=== PATIENT | male | born 1975 | race African-American/Black ===

== ENCOUNTER 2018-05-03 12:39 | Emergency (ER) | payer OTHER ==
[2018-05-03 12:47] VITALS: BP 140/74; PULSE 96; TEMP 98.7; BMI 23.1
[2018-05-03] MEDS ORDERED: KETOROLAC TROMETHAMINE 30 MG/1 ML VIAL IM ONE (12:54)
--- NOTE | 2018-05-03 12:54 | PDOC ---
History of Present Illness - General Chief Complaint: Pain, Acute Stated Complaint: PAIN DUE TO HERNIATED DISC Time Seen by Provider: 05/03/18 12:40 History Source: Patient Exam Limitations: No Limitations - History of Present Illness Initial Comments: 05/03/18 12:41 Mr Reyna presents to the ER again for a complaint of back pain. He was seen in the ER almost 3 weeks ago. Initially work up was negative, pt was diagnosed with epididimytis and started on abx for presumed epididimytis. The pt states the pain has worsened, such that now, he has pain with laying down, walking, sitting on the toilet, bending. Was seen in the ER several days ago, started on tramadol Pain has not improved at all No bowel or bladder incontinence No saddle anesthesia No numbness or weakness of the extremities No fevers or chills Pt has been unable to work due to pain He has followed up with his PMD and has an appointment with Ortho next week PMH: denies PSH: denies Meds: denies ALL: NKDA Social: denies IVDU, drugs, ROS: Constitutional - no reported Fever, Chills, HEENT: no reported vision changes, sore throat Respiratory: no reported cough, sob, hemoptysis Cardiac: no reported chest pain, palpitations, light headedness, leg swelling Abd/GI: no reported abd pain, nausea, vomiting, blood per rectum, melena, diarrhea : (+) right groin pain no reported dysuria, frequency, discharge Musculskelatal : (+) back pain skin - no reported bruising, erythema, rash neurological: no reported headache, numbness, focal weakness, tingling, ataxia, hematologic: no reported easy bruising, easy bleeding PE GENERAL: The patient is awake, alert, and fully oriented, Nontoxic - in no acute distress. HEAD: Normocephalic, atraumatic. EYES: extraocular movements intact, sclera anicteric, conjunctiva clear. ENT: Normal voice, Moist mucous membranes. NECK: Normal range of motion, supple LUNGS: Breath sounds equal, clear to auscultation bilaterally. No wheezes, no rhonchi, no rales. HEART: Regular rate and rhythm, normal S1 and S2 without murmur, rub or gallop. ABDOMEN: Soft, nontender, No guarding, no rebound. No CVA tenderness EXTREMITIES: Normal range of motion, no edema. pain reproduced with adduction of R thigh, +focal tenderness in the insertion point of adductor longus NEUROLOGICAL: No facial assymetry, Normal speech, antalgic gait, strength symmetric in lower extremities 5/5 all extremities Motor examination intact - crosses right leg over left, flexion at hip, extension at hip nml, flexion and extension at knee nml, flexion and extension at ankle nml Sensation in tact PSYCH: Normal mood, normal affect. SKIN: Warm, Dry, normal turgor, 05/03/18 14:14 05/03/18 16:49 05/03/18 16:51 Past History - Past Medical History Allergies/Adverse Reactions: Allergies Allergy/AdvReac Type Severity Reaction Status Date / Time No Known Allergies Allergy Verified 05/03/18 12:40 Home Medications: Ambulatory Orders Lidocaine 5% Patch [Lidoderm Patch -] 1 patch TP DAILY PRN #30 patch 05/03/18 Methocarbamol [Robaxin -] 500 mg PO TID PRN #30 tablet 05/03/18 Methylprednisolone [Medrol Dose Andreas] 4 mg PO ASDIR #21 tablet 05/03/18 Oxycodone HCl/Acetaminophen [Percocet 5-325 mg Tablet] 1 tab PO Q6H PRN #16 tablet MDD 4 05/03/18 COPD: No - Suicide/Smoking/Psychosocial Hx Smoking History: Current every day smoker Number of Cigarettes Smoked Daily: 10 'Breaking Loose' booklet given: 04/24/18 Hx Alcohol Use: No Drug/Substance Use Hx: No Substance Use Type: None Medical Decision Making - Medical Decision Making 05/03/18 12:59 Sciatica Pain poorly controlled No neurologic disability or weakness Will discharge to home on additional medications Pt has ortho follow up Clinical Impression: Sciatica, initial presentation *DC/Admit/Observation/Transfer Diagnosis at time of Disposition: Sciatica Qualifiers: Laterality: right Qualified Code(s): M54.31 - Sciatica, right side - Discharge Dispostion Disposition: HOME Condition at time of disposition: Stable Decision to Admit order: No - Prescriptions Prescriptions: Lidocaine 5% Patch [Lidoderm Patch -] 1 patch TP DAILY PRN #30 patch PRN Reason: Pain Methocarbamol [Robaxin -] 500 mg PO TID PRN #30 tablet PRN Reason: Lower Back Pain Methylprednisolone [Medrol Dose Andreas] 4 mg PO ASDIR #21 tablet Oxycodone HCl/Acetaminophen [Percocet 5-325 mg Tablet] 1 tab PO Q6H PRN #16 tablet MDD 4 PRN Reason: Pain - Referrals - Patient Instructions Printed Discharge Instructions: Sciatica (Alternative Therapy), DI for Sciatica , DI for Back Pain With Sciatica, Smoking Cessation - Post Discharge Activity Forms/Work/School Notes: Back to Work
== END 2018-05-03 13:14 | disposition home or self-care (01) ==
LOC: FER 12:39
PROC: 3E0233Z Introduction of Anti-inflammatory into Muscle, Percutaneous Approach (ICD-10-PCS; principal; 2018-05-03)
DX: M54.31 Sciatica, right side (principal); F17.210 Nicotine dependence, cigarettes, uncomplicated
CPT/HCPCS: 99281-25

== ENCOUNTER 2018-08-07 08:15 | Day surgery (SDC) | payer OTHER ==
[2018-08-01 12:27] VITALS: BMI 22.4
[~2018-08-07 08:15] MED LIST: oxyCODONE HCL 10 MG SUSTAINED ACTING TABLET PO ONE
[2018-08-07] MEDS ORDERED: oxyCODONE HCL 5 MG TABLET PO PRN (08:37)
[2018-08-07] MEDS ORDERED: ONDANSETRON 4 MG/2 ML VIAL IVPUSH PRN (08:37)
[2018-08-07] MEDS ORDERED: LACTATED RINGERS SOLUTION 1,000 ML IV SCH (08:45)
[2018-08-07] MEDS ORDERED: oxyCODONE HCL 10 MG SUSTAINED ACTING TABLET ONE (08:45)
[2018-08-07] MEDS ORDERED: DEXAMETHASONE SOD PHOSPHATE/PF 10 MG/ML SDV ONE (10:49)
[2018-08-07] MEDS ORDERED: BUPIVACAINE HCL/PF (5 MG/ML) 30 ML VIAL IJ ONE (10:50)
[2018-08-07] MEDS ORDERED: MIDAZOLAM HCL 2 MG/2 ML SINGLE DOSE VIAL ONE ×2 (10:50→12:08)
--- NOTE | 2018-08-07 11:11 | HP ---
History & Physical Update - History History: No Change - Physical Physical: No Change - Assessment Assessment: No Change - Plan Plan: No Change (Full H&P in chart)
[2018-08-07] MEDS ORDERED: DEXAMETHASONE SOD PHOSPHATE 4 MG/1 ML VIAL ONE (11:21)
[2018-08-07] MEDS ORDERED: ceFAZolin SODIUM 1 GM VIAL ONE (11:21)
[2018-08-07] MEDS ORDERED: SODIUM CHLORIDE 0.9% P/F 10 ML VIAL IJ ONE (11:21)
[2018-08-07] MEDS ORDERED: ONDANSETRON 4 MG/2 ML VIAL ONE (11:21)
[2018-08-07] MEDS ORDERED: LIDOCAINE 1%/EPI 1:100000 (20 ML MULTI DOSE VIAL) ONE (11:33)
[2018-08-07] MEDS ORDERED: methylPREDNISolone ACET (DEPO) 40 MG/1 ML VIAL ONE (11:33)
[2018-08-07] MEDS ORDERED: THROMBIN (BOVINE) 5,000 UNIT VIAL TP ONE ×2 (11:33→12:21)
[2018-08-07] MEDS ORDERED: LIDOCAINE 1%/EPI 1:100000 (50 ML MULTI DOSE VIAL) INF ONE (12:18)
[2018-08-07] MEDS ORDERED: GELATIN SPONGE,ABSORBABLE 1 GM PACKET TP ONE ×2 (12:22→12:52)
[2018-08-07] MEDS ORDERED: methylPREDNISolone ACET (DEPO) 40 MG/1 ML VIAL IM ONE ×2 (12:30→13:03)
[2018-08-07] MEDS ORDERED: GUM MASTIC/STORAX/MSAL/ALCOHOL 1 DRP DROPSBTL MC ONE (13:08)
--- NOTE | 2018-08-07 13:39 | OP ---
Operative Note - Note: Operative Date: 08/07/18 Pre-Operative Diagnosis: spinal stenosis, herniated disc Operation: laminetomy of L4-L5, microdiscectomy Surgeon: Wilson Mclaughlin Key Account Representative: Miguelina Finnegan Anesthesiologist/SUPPLY CHAIN SPECIALIST: Rafael Corcoran Anesthesia: Spinal Specimens Removed: disc L4-L5 Estimated Blood Loss (mls): 20 Fluid Volume Replaced (mls): 1,000 Operative Report Dictated: Yes
--- NOTE | 2018-08-07 13:40 | SURG ---
Surgery Sheet Pile Hammer Operator Note Sheet Pile Hammer Operator: Miguelina Finnegan PA-C Date of Service: 08/07/18 Diagnosis: lumbar stenosis, herniated disc L4-L5 Procedure: laminecotmy of L4-L5 with microdiscectomy I was present for the entirety of the operative procedure. For further detail, please refer to operative report. Visit type - Case Type Case Type: Scheduled - Emergency Emergency Visit: No - New patient This patient is new to me today: Yes Date on this admission: 08/07/18
[2018-08-07] MEDS ORDERED: oxyCODONE HCL 5 MG TABLET ONE ×2 (14:32→15:58)
[2018-08-07 17:56] VITALS: BP 116/67; PULSE 76; TEMP 98.4
--- NOTE | 2018-08-07 23:15 | OP ---
DATE OF OPERATION: 08/07/2018 PREOPERATIVE DIAGNOSIS: Spinal stenosis L4-5. POSTOPERATIVE DIAGNOSIS: Spinal stenosis L4-5. PROCEDURE PERFORMED: Laminectomy L4-5. SURGEON: Wilson Mclaughlin M.D. FORK TRUCK OPERATOR: Juana Patel ESTIMATED BLOOD LOSS: 250 mL INTRAVENOUS FLUIDS: Per anesthesia. ANESTHESIA: Spinal/TLIP. COMPLICATIONS: There were none. DISPOSITION: Patient brought to the PACU in stable condition. 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 X-rays and MRI were completed, which noted he has spinal stenosis at L4-5. He had gone through an exhaustive course of treatment for this which included medications, physical therapy, as well as injections. Unfortunately, the pain continued to persist in spite of all this. At this point, risks, benefits, and alternatives were discussed and the patient consented to surgery. OPERATIVE NOTE: Patient is brought to the operating room by the anesthesia staff. After appropriate patient identification is performed, spinal anesthesia was given. A TLIP block was also given. The patient was able to position himself prone onto the OR table with all areas of bony prominences well padded at this time. Two needles were placed into his back to yazan off the L4-5 segment, and x-ray is taken to confirm this is correct. Christiana were removed, and 10 mL of lidocaine with epinephrine was injected into his back at this time. His back was prepped and draped in a sterile manner. At this point timeout was completed. An incision was made from the top of L4 down to the bottom of L5. Dissection was carried down to the fascia. Fascia was then split open at this time, and appropriate retractors were then placed in. Then a spinal needle was placed onto the L4 lamina. An x-ray was taken to confirm this was correct. The needle was removed. The interspinous ligament at L4-5 was removed. A portion of the L4-5 spinous process was removed. The nerve root was mobilized medially. A portion of the inferior-superior facets were removed to complete a decompression, the L5 nerve roots appear to be well decompressed. All bleeding was well controlled at this time. Steroids were placed over the nerve root, Floseal was placed over that. The fascia was closed using a number 1 Vicryl suture. The subcutaneous tissue was closed with 2-0 Vicryl suture. Skin was closed with 3-0 Monocryl suture. Dermabond was applied. Steri-Strips were applied. Sterile dressing was applied. Patient was placed supine on OR bed, and brought to the PACU in stable condition. Tam DIXON/[id number] MTDD
== END 2018-08-07 17:56 | disposition home or self-care (01) ==
LOC: FASU 08:15
PROVIDERS: ATTEND Orthopaedic Surgery Orthopaedic Surgery of the Spine
PROC: 01NB0ZZ Release Lumbar Nerve, Open Approach (ICD-10-PCS; principal; 2018-08-07 12:16)
DX: M48.061 Spinal stenosis, lumbar region without neurogenic claudication (principal)
CPT/HCPCS: 72100-TC-FY; 88304-TC; 94760

== ENCOUNTER 2018-08-30 17:59 | Emergency (ER) | payer OTHER ==
[2018-08-30 18:14] VITALS: BP 118/68; PULSE 67; TEMP 98.3; BMI 23.1
--- NOTE | 2018-08-30 18:22 | PDOC ---
History of Present Illness - General History Source: Patient Exam Limitations: No Limitations - History of Present Illness Initial Comments: 08/30/18 18:31 The patient is a 42 year old male, with no significant PMH, who presents to the emergency department with neck and head pain that began 5 days ago. The patient states he cracked his neck 5 days ago when symptoms began and has progressively worsened today. The patient endorses associated symptoms of nausea , vomiting and headache with a severity of 15/10. The patient states neck pain is exacerbated with movement. The patient also mentions he had a laminectomy done 08/07/2018 to the lower back secondary to work injury and notes some swelling to the surgical site.The patient denies lifting anything heavy after surgery. Denies chest pain, shortness of breath and dizziness.Denies fever, chills, diarrhea and constipation. Allergies: NKDA Past surgical history: Laminectomy Lower back Social history: Smokes Marijuana PCP: None reported <Gildardo Aguirre - Last Filed: 08/30/18 18:25> - General History Source: Patient <Celeste Stoddard - Last Filed: 08/30/18 18:53> - General Chief Complaint: Pain Stated Complaint: HEAD AND NECK PAIN FOR 5 DAYS Time Seen by Provider: 08/30/18 18:07 Past History <Gildardo Aguirre - Last Filed: 08/30/18 18:25> - Past Medical History Anemia: No Asthma: No Cancer: No Cardiac Disorders: No CVA: No COPD: No CHF: No Dementia: No Diabetes: No GI Disorders: No Disorders: No HTN: No Hypercholesterolemia: No Liver Disease: No Seizures: No Thyroid Disease: No - Suicide/Smoking/Psychosocial Hx Smoking History: Current every day smoker Have you smoked in the past 12 months: Yes Number of Cigarettes Smoked Daily: 10 'Breaking Loose' booklet given: 04/24/18 Hx Alcohol Use: No Drug/Substance Use Hx: Yes (2x/week) Substance Use Type: Marijuana Hx Substance Use Treatment: No <Celeste Stoddard - Last Filed: 08/30/18 18:53> - Past Medical History Allergies/Adverse Reactions: Allergies Allergy/AdvReac Type Severity Reaction Status Date / Time No Known Allergies Allergy Verified 08/30/18 18:01 Home Medications: Ambulatory Orders NK [No Known Home Medication] 08/30/18 Review of Systems - Review of Systems Able to Perform ROS?: Yes Constitutional: No: Symptoms Reported, See HPI, Chills, Diaphoresis, Fever, Loss of Appetite, Malaise, Night Sweats, Weakness, Weight Stable, Unintentional Wgt. Loss, Unexplained wgt Loss, Other HEENTM: No: Symptoms Reported, See HPI, Eye Pain, Blurred Vision, Tearing, Recent change in vision, Double Vision, Cataracts, Ear Pain, Ocular Prothesis, Ear Discharge, Nose Pain, Nose Congestion, Tinnitus, Nose Bleeding, Hearing Loss , Throat Pain, Throat Swelling, Mouth Pain, Dental Problems, Difficulty Swallowing, Mouth Swelling, Other Respiratory: No: Symptoms reported, See HPI, Cough, Orthopnea, Shortness of Breath, SOB with Exertion, SOB at Rest, Stridor, Wheezing, Productive cough, Hemoptysis, Other Cardiac (ROS): No: Symptoms Reported, See HPI, Chest Pain, Edema, Irregular Heart Rate, Lightheadedness, Palpitations, Syncope, Chest Tightness, Other Musculoskeletal: Yes: Muscle Pain, Neck Pain Neurological: Yes: Headache <Gildardo Aguirre - Last Filed: 08/30/18 18:25> *Physical Exam - Vital Signs Last Vital Signs Temp Pulse Resp BP Pulse Ox 98.3 F 67 16 118/68 100 08/30/18 18:00 08/30/18 18:00 08/30/18 18:00 08/30/18 18:00 08/30/18 18:00 - Physical Exam HEENT: positive: Other (Mild tenderness of the frontal head ) Neck: positive: Tender ( Moderate tenderness mid cervical spine bilateral posterior neck muscle ) <Gildardo Aguirre - Last Filed: 08/30/18 18:25> Medical Decision Making - Medical Decision Making Patient endorsd to Dr Norwood at shift change CT and X ray still pending 08/30/18 18:51 <Celeste Stoddard - Last Filed: 08/30/18 18:53> *DC/Admit/Observation/Transfer - Attestations Scribe Attestion: 08/30/18 18:45 Documentation prepared by Gildardo Aguirre, acting as medical claims analyst for Celeste Stoddard MD. <Gildardo Aguirre - Last Filed: 08/30/18 18:25> <Celeste Stoddard - Last Filed: 08/30/18 18:53> Diagnosis at time of Disposition: Neck muscle strain Qualifiers: Encounter type: initial encounter Qualified Code(s): S16.1XXA - Strain of muscle, fascia and tendon at neck level, initial encounter - Discharge Dispostion Condition at time of disposition: Stable
[2018-08-30] MEDS ORDERED: KETOROLAC TROMETHAMINE 60 MG/2 ML VIAL IM ONE (19:25)
[2018-08-30] MEDS ORDERED: SODIUM CHLORIDE 1,000 ML IV ONE (19:26)
[2018-08-30] MEDS ORDERED: KETOROLAC TROMETHAMINE 30 MG/1 ML VIAL IVPUSH ONE (19:26)
[2018-08-30] MEDS ORDERED: METOCLOPRAMIDE HCL INJECTION 10 MG/2 ML VIAL IVPUSH ONE (19:26)
[2018-08-30] MEDS ORDERED: KETOROLAC TROMETHAMINE 30 MG/1 ML VIAL ONE (19:33)
[2018-08-30 20:04] LABS: HEMATOCRIT 44.6 % (35.4-49); MCH 31.7 pg (25.7-33.7); MCHC 33.6 g/dl (32.0-35.9); MEAN CELL VOLUME 94.2 fl (80-96); PLATELET COUNT 269 K/MM3 (134-434); RBC 4.73 M/mm3 (4.00-5.60); RDW 12.2 % (11.9-15.9); WHITE BLOOD COUNT 7.5 K/mm3 (4.0-10.8)
[2018-08-30 20:11] LABS: ALBUMIN 4.5 g/dl (3.5-5.0); ALK PHOS 56 U/L (32-92); ANION GAP 8 MMOL/L (8-16); BILIRUBIN,TOTAL 0.8 mg/dl (0.2-1.0); BLOOD UREA NITROGEN 11 mg/dl (7-18); CALCIUM 9.2 mg/dl (8.4-10.2); CHLORIDE 107 mmol/L (98-107); CO2 26 mmol/L (22-28); CREATININE 0.9 mg/dl (0.6-1.3); GLUCOSE,RANDOM 110 mg/dl (74-106); POTASSIUM 3.5 mmol/L (3.5-5.1); SGOT/AST 16 U/L (10-42); SGPT/ALT 12 U/L (10-40); SODIUM 141 mmol/L (136-145); TOT PROT 7.1 g/dl (6.4-8.3)
--- NOTE | 2018-08-30 20:14 | PDOC ---
*Physical Exam - Vital Signs Last Vital Signs Temp Pulse Resp BP Pulse Ox 98.3 F 67 16 118/68 100 08/30/18 18:00 08/30/18 18:00 08/30/18 18:00 08/30/18 18:00 08/30/18 18:00 ED Treatment Course - LABORATORY CBC & Chemistry Diagram: 08/30/18 19:28 08/30/18 19:28 - ADDITIONAL ORDERS Additional order review: Laboratory Results 08/30/18 19:28 Sodium 141 Potassium 3.5 Chloride 107 Carbon Dioxide 26 Anion Gap 8 BUN 11 Creatinine 0.9 Creat Clearance w eGFR > 60 Random Glucose 110 H Calcium 9.2 Total Bilirubin 0.8 AST 16 ALT 12 Alkaline Phosphatase 56 Total Protein 7.1 Albumin 4.5 08/30/18 19:28 RBC 4.73 MCV 94.2 MCHC 33.6 RDW 12.2 MPV 9.0 Neutrophils % No Result Required. Lymphocytes % No Result Required. - Medications Given in the ED: ED Medications Discontinued Medications Generic Name Dose Route Start Last Admin Trade Name Shanice PRN Reason Stop Dose Admin Ketorolac Tromethamine 60 mg 08/30/18 19:25 08/30/18 19:47 Toradol Injection - IM 08/30/18 19:26 Not Given ONCE ONE Ketorolac Tromethamine 30 mg 08/30/18 19:26 08/30/18 19:30 Toradol Injection - IVPUSH 08/30/18 19:27 30 mg ONCE ONE Administration Metoclopramide HCl 10 mg 08/30/18 19:26 08/30/18 19:30 Reglan Injection - IVPUSH 08/30/18 19:27 10 mg ONCE ONE Administration Progress Note - Progress Note Progress Note: This is a 42-year-old male whose care was transferred to me from Dr. Stoddard at 7 PM. Patient said that he "cracked his neck approximately 2 weeks ago and has had progressive pain in his head and neck since. In addition to that patient said he has had some nausea vomiting secondary to the headache. Patient was given Toradol and Reglan here in the emergency room with marked improvement in his symptoms but not complete resolution. She had a head CT that was negative for any acute pathology Patient had a cervical spine x-ray that was negative for any acute pathology cervical spine x-ray was reviewed and interpreted by me. Patient discharged home will follow-up with his primary care doctor. *DC/Admit/Observation/Transfer Diagnosis at time of Disposition: Neck muscle strain Qualifiers: Encounter type: initial encounter Qualified Code(s): S16.1XXA - Strain of muscle, fascia and tendon at neck level, initial encounter - Discharge Dispostion Disposition: HOME Condition at time of disposition: Stable - Referrals - Patient Instructions Additional Instructions: For the pain you can take ibuprofen, Aleve or Tylenol. Return to the emergency department immediately with ANY new, persistent or worsening symptoms. Continue any medications as previously prescribed by your physician. You should follow up with your primary doctor as soon as possible regarding today's emergency department visit. . Please make sure your doctor reviews the results of your emergency evaluation. Thank you for coming to the Emergency Department today for your care. It was a pleasure to see you today. Please note that your evaluation is INCOMPLETE until you follow-up with your doctor. - Post Discharge Activity
[2018-08-30] MEDS ORDERED: MECLIZINE HCL 25 MG TABLET (FP) PO ONE (20:46)
[2018-08-30] MEDS ORDERED: ONDANSETRON *ODT* 4 MG TABLET SL ONE (20:46)
--- NOTE | 2018-08-30 20:47 | PDOC ---
*Physical Exam - Vital Signs Last Vital Signs Temp Pulse Resp BP Pulse Ox 98.3 F 67 16 118/68 100 08/30/18 18:00 08/30/18 18:00 08/30/18 18:00 08/30/18 18:00 08/30/18 18:00 ED Treatment Course - LABORATORY CBC & Chemistry Diagram: 08/30/18 19:28 08/30/18 19:28 - ADDITIONAL ORDERS Additional order review: Laboratory Results 08/30/18 19:28 Sodium 141 Potassium 3.5 Chloride 107 Carbon Dioxide 26 Anion Gap 8 BUN 11 Creatinine 0.9 Creat Clearance w eGFR > 60 Random Glucose 110 H Calcium 9.2 Total Bilirubin 0.8 AST 16 ALT 12 Alkaline Phosphatase 56 Total Protein 7.1 Albumin 4.5 08/30/18 19:28 RBC 4.73 MCV 94.2 MCHC 33.6 RDW 12.2 MPV 9.0 Neutrophils % No Result Required. Lymphocytes % No Result Required. - Medications Given in the ED: ED Medications Discontinued Medications Generic Name Dose Route Start Last Admin Trade Name Freq PRN Reason Stop Dose Admin Sodium Chloride 1,000 mls @ 1,000 mls/hr 08/30/18 19:26 08/30/18 19:43 Normal Saline - IV 08/30/18 20:25 1,000 mls/hr .Q1H ONE Administration Ketorolac Tromethamine 60 mg 08/30/18 19:25 08/30/18 19:47 Toradol Injection - IM 08/30/18 19:26 Not Given ONCE ONE Ketorolac Tromethamine 30 mg 08/30/18 19:26 08/30/18 19:30 Toradol Injection - IVPUSH 08/30/18 19:27 30 mg ONCE ONE Administration Metoclopramide HCl 10 mg 08/30/18 19:26 08/30/18 19:30 Reglan Injection - IVPUSH 08/30/18 19:27 10 mg ONCE ONE Administration Progress Note - Progress Note Progress Note: Postdischarge patient began to feel poorly and became nauseous prior to leaving the premises. So patient came back in for reevaluation. Patient was given some ODT Zofran and Antivert. After the Zofran and Antivert patient got up and walked out of the ED again. *DC/Admit/Observation/Transfer Diagnosis at time of Disposition: Neck muscle strain Qualifiers: Encounter type: initial encounter Qualified Code(s): S16.1XXA - Strain of muscle, fascia and tendon at neck level, initial encounter - Discharge Dispostion Disposition: HOME Condition at time of disposition: Stable - Referrals - Patient Instructions Additional Instructions: For the pain you can take ibuprofen, Aleve or Tylenol. Return to the emergency department immediately with ANY new, persistent or worsening symptoms. Continue any medications as previously prescribed by your physician. You should follow up with your primary doctor as soon as possible regarding today's emergency department visit. . Please make sure your doctor reviews the results of your emergency evaluation. Thank you for coming to the Emergency Department today for your care. It was a pleasure to see you today. Please note that your evaluation is INCOMPLETE until you follow-up with your doctor. - Post Discharge Activity
[2018-08-30] MEDS ORDERED: MECLIZINE HCL 25 MG TABLET (FP) ONE (20:49)
[2018-08-30] MEDS ORDERED: ONDANSETRON *ODT* 4 MG TABLET ONE (20:50)
[2018-08-30 20:52] LABS: PLATELET ESTIMATE ADEQUATE
== END 2018-08-30 21:11 | disposition home or self-care (01) ==
LOC: FER 17:59
PROC: 3E0333Z Introduction of Anti-inflammatory into Peripheral Vein, Percutaneous Approach (ICD-10-PCS; principal; 2018-08-30)
PROC: 3E033GC Introduction of Other Therapeutic Substance into Peripheral Vein, Percutaneous Approach (ICD-10-PCS; 2018-08-30)
PROC: 3E0337Z Introduction of Electrolytic and Water Balance Substance into Peripheral Vein, Percutaneous Approach (ICD-10-PCS; 2018-08-30)
DX: S16.1XXA Strain of muscle, fascia and tendon at neck level, initial encounter (principal); X58.XXXA Exposure to other specified factors, initial encounter; Y93.89 Activity, other specified; Y92.9 Unspecified place or not applicable; F17.210 Nicotine dependence, cigarettes, uncomplicated
CPT/HCPCS: 36415; 70450-TC; 72050-TC-FY; 80053; 85025; 99283-25; J7030; Q0162

== ENCOUNTER 2019-01-31 15:58 | Emergency (ER) | payer OTHER ==
[2019-01-31 16:49] VITALS: BP 119/74; PULSE 97; TEMP 99; BMI 24.4
[2019-01-31] MEDS ORDERED: DEXAMETHASONE LIQUID 0.5 MG/5 ML 240 ML BULK BOTTLE PO ONE (17:27)
--- NOTE | 2019-01-31 17:31 | PDOC ---
History of Present Illness - General Chief Complaint: Cold Symptoms Stated Complaint: COUGHING/CONJESTED Time Seen by Provider: 01/31/19 16:58 - History of Present Illness Initial Comments: 01/31/19 17:30 43-year-old male without comorbidities presents for evaluation of fever chills night sweats and cough times one day. Past History - Past Medical History Allergies/Adverse Reactions: Allergies Allergy/AdvReac Type Severity Reaction Status Date / Time No Known Allergies Allergy Verified 01/31/19 16:49 Home Medications: Ambulatory Orders Albuterol Sulfate Inhaler - [Ventolin HFA Inhaler -] 1 - 2 inh PO Q4H #1 inhaler 01/31/19 Azithromycin Ivpb [Zithromax 500Mg Ivpb (Pre-Docked)] 250 mg IVPB DAILY #6 vial 01/31/19 Guaifenesin Dm [Mucinex Dm -] 1 tab PO BID #60 tab.er.12h 01/31/19 Anemia: No Asthma: No Cancer: No Cardiac Disorders: No CVA: No COPD: No CHF: No Dementia: No Diabetes: No GI Disorders: No Disorders: No HTN: No Hypercholesterolemia: No Liver Disease: No Seizures: No Thyroid Disease: No - Suicide/Smoking/Psychosocial Hx Smoking History: Never smoked Have you smoked in the past 12 months: Yes Number of Cigarettes Smoked Daily: 10 Information on smoking cessation initiated: No 'Breaking Loose' booklet given: 04/24/18 Hx Alcohol Use: No Drug/Substance Use Hx: No Substance Use Type: Marijuana Hx Substance Use Treatment: No Review of Systems - Review of Systems Constitutional: Yes: See HPI, Chills, Fever, Malaise, Night Sweats Respiratory: Yes: Cough *Physical Exam - Vital Signs Last Vital Signs Temp Pulse Resp BP Pulse Ox 99 F 97 H 18 119/74 95 01/31/19 16:46 01/31/19 16:46 01/31/19 16:46 01/31/19 16:46 01/31/19 16:46 - Physical Exam Comments: 01/31/19 17:30 HEAD: NC/AT EYES: Conjuntiva clear Ears: Canals and TM's normal NOSE: No d/c THROAT: Moist mucous membrances, oral pharanx clear, uvula midline NECK: Supple without adenopathy CARDIAC: S1 S2 LUNGS: Mild diffuse wheezing mild rhonchi bilateral bases ABDOMEN: Soft NT ND MS: Full ROM in all joints without edema NEUROLOGIC: No gross sensory or motor deficits, NVID SKIN: Normal color and temperature no lesions or rashes Moderate Sedation - Procedure Monitoring Vital Signs: Procedure Monitoring Vital Signs Temperature 99 F 01/31/19 16:46 Pulse Rate 97 H 01/31/19 16:46 Respiratory Rate 18 01/31/19 16:46 Blood Pressure 119/74 01/31/19 16:46 O2 Sat by Pulse Oximetry (%) 95 01/31/19 16:46 ED Treatment Course - RADIOLOGY Radiology Studies Ordered: Category Date Time Status CHEST PA & LAT [RAD] Stat Radiology 01/31/19 17:27 Ordered Medical Decision Making - Medical Decision Making 01/31/19 17:55 CXR clear 01/31/19 18:37 Patient wheezing resolved after Decadron and DuoNeb's. Rhonchi has greatly decreased. There is faint rhonchi at the right base on reexamination. I will treat him for asthmatic bronchitis and have him follow-up with pulmonology. Discussed cessation of smoking *DC/Admit/Observation/Transfer Diagnosis at time of Disposition: Asthmatic bronchitis - Discharge Dispostion Disposition: HOME Condition at time of disposition: Improved Decision to Admit order: No - Referrals Referrals: Dieudonne Starr MD, MD [Staff Physician] - - Patient Instructions Printed Discharge Instructions: Acute Bronchitis, DI for Acute Bronchitis, Asthma -- Adult, Assess Your Smoking Habit, Nicotine Addiction, How to Quit Smoking, Reasons to Quit Smoking Additional Instructions: Return to the emergency room for worsening symptoms. Please follow-up with pulmonology in one to 2 days for further evaluation and treatment options. Take the antibiotics as directed and use the inhaler as directed. He will given a dose of a long-acting steroid in the emergency room which will help her breathing. Again return to the emergency room for worsening symptoms and follow- up with pulmonology in the next 1-2 days for further evaluation and treatment options as well as her primary care physician in the same timeframe. - Post Discharge Activity
[2019-01-31] MEDS ORDERED: ACETAMINOPHEN 500 MG TABLET (FP) PO ONE (17:33)
[2019-01-31] MEDS ORDERED: DEXAMETHASONE SOD PHOSPHATE 10 MG/1 ML VIAL ONE (17:37)
[2019-01-31] MEDS ORDERED: ACETAMINOPHEN 500 MG TABLET (FP) ONE (17:38)
[2019-01-31] MEDS ORDERED: ALBUTEROL SO4 2.5/IPRATROPIUM 0.5 INH SOL 3 ML VIAL.NEB. NEB ONE (17:38)
[2019-01-31] MEDS: ALBUTEROL SO4 2.5/IPRATROPIUM 0.5 INH SOL 3 ML VIAL.NEB. NEB SCH ×4 (17:40→18:19)
== END 2019-01-31 18:44 | disposition home or self-care (01) ==
LOC: JERFT 15:58
PROC: 3E0F7GC Introduction of Other Therapeutic Substance into Respiratory Tract, Via Natural or Artificial Opening (ICD-10-PCS; principal; 2019-01-31)
DX: J45.909 Unspecified asthma, uncomplicated (principal); Z87.891 Personal history of nicotine dependence
CPT/HCPCS: 71046-TC-FY; 87804; 99281-25

== ENCOUNTER 2020-01-16 11:21 | Emergency (ER) | payer SELFPAY ==
[2020-01-16 11:42] VITALS: BP 110/73; PULSE 73; TEMP 98; BMI 23.1
--- NOTE | 2020-01-16 11:51 | PDOC ---
History of Present Illness - General Chief Complaint: Urinary Problem Stated Complaint: URINARY HESITANCY Time Seen by Provider: 01/16/20 11:45 - History of Present Illness Initial Comments: 01/16/20 15:32 Chief complaint: Urinary hesitancy HPI: For about 2 weeks, the patient has had difficulty initiating urination, taking approximately 30 to 45 seconds before he can start. He also states that the urine "sprays" on both sides, there not being a usual narrow stream. There is no abdominal pain, dysuria, urgency, frequency, or hematuria. There is no fever/chills or back pain. Patient has had unprotected intercourse and is concerned about STDs Review of systems: As above. Otherwise negative Past medical history: Childhood asthma, which seems to have resolved. Otherwise healthy. Social/family history reviewed and noncontributory Physical exam: Alert and oriented well-developed well-nourished no acute distress cheerful and cooperative Afebrile, vital signs normal HEENT normal Neck supple without bruit mass or nodes Chest clear CV regular without murmur rub or gallop Abdomen soft nontender without mass organomegaly. No CVAT : No urethral lesions or discharge. No testicular masses or tenderness. No inguinal adenopathy. Impression: Rule out UTI, rule out STD Plan: Urinalysis is clear. HIV, chlamydia, and GC pending. Patient advised he will be called if there are any positive results. Otherwise he is referred to urologist for follow-up if symptoms persist. Fully ambulatory in no distress at discharge Past History - Past Medical History Allergies/Adverse Reactions: Allergies Allergy/AdvReac Type Severity Reaction Status Date / Time No Known Allergies Allergy Verified 01/31/19 16:49 Home Medications: Ambulatory Orders Albuterol Sulfate Inhaler - [Ventolin HFA Inhaler -] 1 - 2 inh PO Q4H #1 inhaler 01/31/19 Azithromycin Ivpb [Zithromax 500Mg Ivpb (Pre-Docked)] 250 mg IVPB DAILY #6 vial 01/31/19 Guaifenesin Dm [Mucinex Dm -] 1 tab PO BID #60 tab.er.12h 01/31/19 Anemia: No Asthma: No Cancer: No Cardiac Disorders: No CVA: No COPD: No CHF: No Dementia: No Diabetes: No GI Disorders: No Disorders: No HTN: No Hypercholesterolemia: No Liver Disease: No Seizures: No Thyroid Disease: No - Psycho Social/Smoking Cessation Hx Smoking History: Current every day smoker Have you smoked in the past 12 months: Yes Number of Cigarettes Smoked Daily: 10 Information on smoking cessation initiated: Yes 'Breaking Loose' booklet given: 04/24/18 Hx Alcohol Use: Yes Drug/Substance Use Hx: Yes (MARIJUANA) Substance Use Type: Marijuana Hx Substance Use Treatment: No *Physical Exam - Vital Signs Last Vital Signs Temp Pulse Resp BP Pulse Ox 98.0 F 73 15 110/73 100 01/16/20 11:28 01/16/20 11:28 01/16/20 11:28 01/16/20 11:28 01/16/20 11:28 Discharge - Discharge Information Problems reviewed: Yes Clinical Impression/Diagnosis: Urethritis Condition: Stable Disposition: HOME - Admission No - Follow up/Referral Referrals: Segundo Murray MD [Staff Physician] - 1 week - Patient Discharge Instructions Patient Printed Discharge Instructions: DI for Urethritis Additional Instructions: Urinalysis shows no sign of urinary tract infection Results of STD screening are pending. Call for results this evening or tomorrow. - Post Discharge Activity Work/Back to School Note: Back to Work
== END 2020-01-16 14:38 | disposition home or self-care (01) ==
LOC: FER 11:21
DX: N34.2 Other urethritis (principal); F17.210 Nicotine dependence, cigarettes, uncomplicated
CPT/HCPCS: 36415; 81003; 87389; 87491; 87591; 99283-25

== ENCOUNTER 2020-07-24 16:16 | Emergency (ER) | payer OTHER ==
[2020-07-24] MEDS ORDERED: IBUPROFEN 600 MG TABLET (FP) PO ONE ×2 (16:57→17:03)
--- NOTE | 2020-07-24 17:14 | PDOC ---
History of Present Illness - General Chief Complaint: Pain Stated Complaint: RT RIB PAIN WITH MOVT Time Seen by Provider: 07/24/20 16:57 History Source: Patient Exam Limitations: No Limitations - History of Present Illness Initial Comments: 07/24/20 17:08 44-year-old male no past medical history here today complaining of right rib pain. Patient states he was smoking weed recently does smoke often was eating and went to bed suddenly notes he had right-sided chest pain is worse with certain movements and reaching as well as palpation denies any fevers or chills no trauma no cough no history of blood clots it is worse when he takes a deep breath no leg swelling or recent travel no history of COVID infection or cold exposures patient is also incidentally complaining of a cyst that he feels on his left fourth finger which she has had for a very long time denies any pain no trauma does not limit his motion additionally today he was complaining of a bloody stool had blood-streaked stool in the toilet bowl states that he has has near intermittent constipation and loose stool does have a history of hemorrhoids also. Has not seen a GI denies any other abdominal pain not feeling lightheaded no family history of colon cancer Past History - Medical History Allergies/Adverse Reactions: Allergies Allergy/AdvReac Type Severity Reaction Status Date / Time No Known Allergies Allergy Verified 07/24/20 16:21 Home Medications: Ambulatory Orders NK [No Known Home Medication] 07/24/20 Anemia: No Asthma: No Cancer: No Cardiac Disorders: No CVA: No COPD: No CHF: No Dementia: No Diabetes: No GI Disorders: No Disorders: No HTN: No Hypercholesterolemia: No Liver Disease: No Seizures: No Thyroid Disease: No - Psycho-Social/Smoking History Smoking History: Current every day smoker Have you smoked in the past 12 months: Yes Number of Cigarettes Smoked Daily: 5 Information on smoking cessation initiated: Yes 'Breaking Loose' booklet given: 04/24/18 - Substance Abuse Hx (Audit-C & DAST Scrn) How often the patient has a drink containing alcohol: Never Score: In Men: 4 or > Positive; In Women: 3 or > Positive: 0 Screen Result (Pos requires Nsg. Audit-10AR): Negative In the last yr the pt used illegal drug/Rx for NonMed reason: No Score: Yes response is considered Positive: 0 Screen Result (Positive result requires Nsg. DAST-10): Negative Review of Systems - Review of Systems Able to Perform ROS?: Yes Is the patient limited Portuguese proficient: No Constitutional: No: Chills, Fever HEENTM: No: Eye Pain, Tearing Respiratory: No: Cough, Shortness of Breath Cardiac (ROS): Yes: Chest Pain ABD/GI: Yes: Blood Streaked Bowels, Constipated, Diarrhea. No: Abdominal Distended : No: Burning, Dysuria, Discharge Musculoskeletal: No: Back Pain Integumentary: No: Bruising Neurological: No: Headache, Paresthesia All Other Systems: Reviewed and Negative *Physical Exam - Vital Signs Last Vital Signs Temp Pulse Resp BP Pulse Ox 98.2 F 88 20 112/85 97 07/24/20 16:18 07/24/20 16:18 07/24/20 16:18 07/24/20 16:18 07/24/20 16:18 - Physical Exam 07/24/20 17:10 Awake alert no acute distress lungs are clear bilaterally there is tenderness of the right lateral ribs no step-off no crepitus abdomen is soft and nontender extremities are warm well perfused skin is warm and dry no calf tenderness or edema appreciated. Neurological patient is awake alert and oriented x3. Lamination of the left hand demonstrates a palpable small beadlike ganglion cyst over the volar aspect of the left fourth finger it is mobile nontender no triggering noticed of that finger. ED Treatment Course - RADIOLOGY Radiology Studies Ordered: Category Date Time Status CXR [CHEST PA & LAT] [RAD] Stat Radiology 07/24/20 16:57 Stop Req RIBS RIGHT SIDE [RAD] Stat Radiology 07/24/20 16:57 Ordered - Medications Given in the ED: ED Medications Discontinued Medications Generic Name Dose Route Start Last Admin Trade Name Freq PRN Reason Stop Dose Admin Ibuprofen 600 mg 07/24/20 16:57 07/24/20 17:04 Motrin - PO 07/24/20 16:58 600 mg ONCE ONE Administration Medical Decision Making - Medical Decision Making 07/24/20 17:11 44-year-old male complaining of right-sided rib pain after smoking weed differential includes pneumothorax, chest wall is tenderness rule out occult fracture plan for anti-inflammatories. Patient also has a ganglion cyst in his left finger no trigger finger noted. Recommend hand follow-up incidentally is also complaining of blood-streaked stool like related to hemorrhoids perform a rectal exam and give him outpatient GI follow-up 07/24/20 17:34 xray negative for ptx, no infection or infiltrate, no acute fracture. pt no risk factors for PE and reproducible pain. 07/24/20 18:10 Rectal exam performed no gross blood there is palpable internal hemorrhoids no bleeding noted no stool in the vault no external hemorrhoids patient given referral for outpatient Dr. Flores as well as Dr. Reyes 07/24/20 18:11 Discharge - Discharge Information Problems reviewed: Yes Clinical Impression/Diagnosis: Hemorrhoid, Ganglion, Chest wall pain Condition: Improved Disposition: HOME - Admission No - Follow up/Referral Referrals: Francisco Flores MD [Staff Physician] - Khoa Marin MD [Staff Physician] - - Patient Discharge Instructions Patient Printed Discharge Instructions: Hemorrhoids, Costochondritis Additional Instructions: Your x-ray is negative for any fracture or broken ribs. You can take ibuprofen for your pain you likely strained the muscles around the ribs return for any shortness of breath fevers chills or any other concerns. Regarding her hand you have a small ganglion cyst in your finger you can follow-up with a hand specialist see referral information for Dr. Reyes call to schedule appointment to be seen at the earliest available. Regarding your bloody stool you likely having blood related to your hemorrhoids however you should follow-up with a coil taper and seek further colonoscopy as indicated by them. See referral for Dr. Flores call to schedule an appointment at the earliest available that she also follow-up with your primary care doctor in addition you should quit smoking - Post Discharge Activity
[2020-07-24 17:25] VITALS: BP 112/85; PULSE 88; TEMP 98.2; BMI 22.3
== END 2020-07-24 18:38 | disposition home or self-care (01) ==
LOC: FER 16:16
DX: R07.9 Chest pain, unspecified (principal); K64.9 Unspecified hemorrhoids; M67.442 Ganglion, left hand
CPT/HCPCS: 71046-TC-FY; 71101-TC-RT-FY; 99284-25

== ENCOUNTER 2022-07-02 16:52 | Emergency (ER) | payer OTHER ==
[2022-07-02 17:40] VITALS: BP 157/111; PULSE 95; RESP 18; TEMP 98.7; BMI 27.4
== END 2022-07-02 18:25 | disposition home or self-care (01) ==
LOC: FER 16:52
DX: M79.642 Pain in left hand (principal); H53.149 Visual discomfort, unspecified; S69.92XA Unspecified injury of left wrist, hand and finger(s), initial encounter
CPT/HCPCS: 73090-TC-LT-FY; 73110-TC-LT-FY; 73130-TC-LT-FY; 99284-25

== ENCOUNTER 2023-12-15 22:30 | Emergency (ER) | payer OTHER ==
[2023-12-15] MEDS ORDERED: CEPHALEXIN MONOHYDRATE 500 MG CAPSULE (UD) PO ONE (22:45)
[2023-12-15] MEDS ORDERED: LIDOCAINE HCL 1%, 10 MG/ML (20ML VIAL) ONE (22:46)
[2023-12-15] MEDS ORDERED: CEPHALEXIN MONOHYDRATE 500 MG CAPSULE (UD) ONE (22:48)
[2023-12-15 22:57] VITALS: BP 114/79; PULSE 72; RESP 16; TEMP 98.3; BMI 23.6
== END 2023-12-15 23:12 | disposition home or self-care (01) ==
LOC: FER 22:30
PROC: 0H91XZZ Drainage of Face Skin, External Approach (ICD-10-PCS; principal; 2023-12-15)
DX: L02.01 Cutaneous abscess of face (principal)
CPT/HCPCS: 87070; 87205; 99283-25

== ENCOUNTER 2023-12-18 19:58 | Emergency (ER) | payer OTHER ==
[2023-12-18 20:12] VITALS: BP 133/72; PULSE 72; RESP 16; TEMP 98.6; BMI 23.5
== END 2023-12-18 20:15 | disposition home or self-care (01) ==
LOC: FER 19:58
DX: Z48.00 Encounter for change or removal of nonsurgical wound dressing (principal)
CPT/HCPCS: 99281-25

== ENCOUNTER 2024-07-10 23:16 | Emergency (ER) | payer SELFPAY ==
[2024-07-10 23:24] VITALS: BP 120/87; PULSE 88; RESP 16; TEMP 98.4; BMI 21.7
[2024-07-11 02:34] LABS: HIV INTERPRETATION NEGATIVE (NEGATIVE)
== END 2024-07-10 23:37 | disposition home or self-care (01) ==
LOC: FER 23:16
DX: T63.451A Toxic effect of venom of hornets, accidental (unintentional), initial encounter (principal); L29.9 Pruritus, unspecified
CPT/HCPCS: 36415; 86803; 87389; 99283-25